=== PATIENT | female | born 1950 | race Caucasian/White ===

== ENCOUNTER 2017-03-02 08:01 | Day surgery (SDC) | payer MEDICARE, BC ==
--- NOTE | ~2017-03-02 | EGD ---
EGD REPORT [facility] [address] [id number] NAME: PHOEBE ALEX : [birth year] STATUS : REG [facility]#: [id number] AGE: 67 ADM/REG DATE : 03/02/17 MR#: [id number] REPORT SERV DATE: 03/02/17 DICTATED BY: MARCOS BURGESS DATE: 03/02/17 REPORT STATUS : Draft TRANSCRIBED BY: [facility] DATE: 03/02/17 Endoscopy Center Patient Name: Phoebe Alex Date of : 1950 Attending MD: MARCOS BURGESS MD Procedure Date No Time: 03/02/2017 Procedure: Colonoscopy Indications: High risk colon cancer surveillance: Personal history of colonic polyps Referring MD: JARAD KOCH MD Medicines: as per anesthesia Complications: No immediate complications. Procedure: Pre-Anesthesia Assessment: - ASA Grade Assessment: III - A patient with severe systemic disease. After I obtained informed consent, the scope was passed under direct vision. Throughout the procedure, the patient's blood pressure, pulse, and oxygen saturations were monitored continuously. The PCF [id number] was introduced through the anus and advanced to the cecum, identified by appendiceal orifice and ileocecal valve. The colonoscopy was performed without difficulty. The patient tolerated the procedure. The quality of the bowel preparation was adequate to identify polyps. Findings: The perianal and digital rectal examinations were normal. Internal hemorrhoids were found during endoscopy and were mild. Impression: - Internal hemorrhoids. Recommendation: - Repeat colonoscopy in 5 years for surveillance. Procedure Code(s): --- Professional --- 99901, Colonoscopy, flexible, proximal to splenic flexure; diagnostic, with or without collection of specimen(s) by brushing or washing, with or without colon decompression (separate procedure) Diagnosis Code(s): --- Professional --- K64.8, Other hemorrhoids Z86.010, Personal history of colonic polyps CPT copyright 2013 [employer]. All rights reserved. EGD REPORT [facility] [address] [id number] NAME: PHOEBE ALEX : [birth year] STATUS : REG [facility]#: [id number] AGE: 67 ADM/REG DATE : 03/02/17 MR#: [id number] REPORT SERV DATE: 03/02/17 DICTATED BY: MARCOS BURGESS. DATE: 03/02/17 REPORT STATUS : Draft TRANSCRIBED BY: [employer] DATE: 03/02/17 The codes documented in this report are preliminary and upon cook fishing vessel review may be revised to meet current compliance requirements. MARCOS BURGESS MD 03/02/2017 1:18 PM This report has been signed electronically. Number of Addenda: 0 Note Initiated On: 03/02/2017 12:48 PM Scope Withdrawal Time 0 hours 11 minutes 4 seconds [address] [id number]
[~2017-03-02 08:01] MED LIST: ACCUNE1 INH; ADVAIR230P INH; BIAXIN5 PO; BIOTIN PO; BREO ELLIPTA 21 EACH INH; CLARINEX5 MG PO; CLARIT10 PO; DIOVAN HC1 PO; DUONEB INH; DURICEF PO; FERROUS SULF325 M1 PO; FLEX PO; FLONASE NAS; GLUCPH PO; KLOR-CON M2020 MEQ PO; L20 PO; L40 PO; LEVAQUIN750 MG PO; LEXAPRO10 PO; LEXAPRO20 PO; LORT7 PO; LORTABLIQ PO; MULTIPLE VIT PO; NAIL-EX2.5 MG OR; NAIL-EX2.5 MG PO; P20 PO; PRILO PO; PRILOSEC40 MG PO; PROAIR HFA INH; PROTONIX PO; QVAR80 MCG INH; RESTASIS OPH; SINGULAIR1 PO; SPIRIVA INH; STRATTERA18 MG PO; TESS PO; VITAMIN D31000 UNIT PO; VITAMIN E PO; [UNRECOGNIZED DRUG - CODE] PO; [UNRECOGNIZED DRUG - OTHER] PO; [UNRECOGNIZED DRUG - OTHER] PO; [UNRECOGNIZED DRUG - OTHER] PO
[2017-07-01] MEDS ORDERED: NEUR300 PO (15:40)
[2017-07-01] MEDS ORDERED: ASAB PO (15:41)
[2017-07-01] MEDS ORDERED: NORCO1 TA1 PO (15:44)
[2017-07-01] MEDS ORDERED: MAG OXIDE250 MG PO (15:45)
[2017-07-01] MEDS ORDERED: ENDOCET1 TAB PO (15:45)
[2017-07-01] MEDS ORDERED: BIOSIL PO (15:46)
[2017-07-01] MEDS ORDERED: ALPHA LIPOIC300 MG PO (15:46)
[2017-07-01] MEDS ORDERED: EMERGEN C PO (15:47)
[2017-07-01] MEDS ORDERED: PROBIOTIC PO (15:47)
[2017-07-01] MEDS ORDERED: AIRBORNE PO (15:48)
[2017-07-08] MEDS ORDERED: C5 (13:35)
[2017-07-08] MEDS ORDERED: NORCO1 TA2 PO (13:35)
== END 2017-03-02 23:59 | disposition home health service (06) ==
LOC: DMU 08:01
PROVIDERS: Internal Medicine Gastroenterology
PROC: 0DJD8ZZ Inspection of Lower Intestinal Tract, Via Natural or Artificial Opening Endoscopic (ICD-10-PCS; principal; 2017-03-02 10:30)
DX: K64.8 Other hemorrhoids (principal); J45.909 Unspecified asthma, uncomplicated; E11.9 Type 2 diabetes mellitus without complications; G47.30 Sleep apnea, unspecified; K21.9 Gastro-esophageal reflux disease without esophagitis; M81.0 Age-related osteoporosis without current pathological fracture; F32.9 Major depressive disorder, single episode, unspecified; D64.9 Anemia, unspecified; Z86.010 Personal history of colon polyps; Z88.0 Allergy status to penicillin; Z88.1 Allergy status to other antibiotic agents; Z88.8 Allergy status to other drugs, medicaments and biological substances; Z90.49 Acquired absence of other specified parts of digestive tract; Z90.710 Acquired absence of both cervix and uterus; Z98.890 Other specified postprocedural states
CPT/HCPCS: 82962; J0461